=== PATIENT | male | born 2000 | race Caucasian/White ===

== ENCOUNTER 2021-03-06 21:13 | Emergency (ER) | payer MEDICAID, OTHER ==
[~2021-03-06] VITALS: Ht 180.3 cm; Wt 63.6 kg
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
[2021-03-06 22:36] VITALS: BP 144/94
== END 2021-03-06 22:36 | disposition home or self-care (01) ==
LOC: ER FS 21:15
DX: S00.83XA Contusion of other part of head, initial encounter (principal); S20.319A Abrasion of unspecified front wall of thorax, initial encounter; S80.212A Abrasion, left knee, initial encounter; S80.211A Abrasion, right knee, initial encounter; S09.90XA Unspecified injury of head, initial encounter; Y04.2XXA Assault by strike against or bumped into by another person, initial encounter
CPT/HCPCS: 70450; 70486; 72125

== ENCOUNTER 2021-08-07 19:52 | Emergency (ER) | payer MEDICAID ==
[~2021-08-07] VITALS: Ht 180 cm; Wt 66.2 kg
--- NOTE | 2021-08-07 20:10 | ED Lower Extremity ---
General Chief Complaint: Lower Extremity Stated Complaint: RIGHT FOOT/ANKLE INJURY Source: patient Exam Limitations: no limitations History of Present Illness Date Seen by Provider: Aug 07, 2021 Time Seen by Provider: 19:57 Initial Comments 21-year-old male with no significant past medical history coming in due to right ankle pain. He was playing basketball about 30 minutes prior to arrival when he came down and twisted his ankle out. Was able to take some steps on it but has been limping since. Has not taking any medicines. The pain is moderate, constant, throbbing in his right ankle laterally. The pain is worse with walking. Denies any previous injuries. Allergies and Home Medications Allergies Coded Allergies: No Known Drug Allergies (Unverified , 03/06/21) Patient Home Medication List Home Medication List Reviewed: Yes Review of Systems Constitutional: No chills, No fever EENTM: No blurred vision Respiratory: No cough Cardiovascular: No chest pain Gastrointestinal: No abdominal pain Genitourinary: no symptoms reported Musculoskeletal: joint pain Skin: no symptoms reported Psychiatric/Neurological: No Symptoms Reported All Other Systems Reviewed Negative Unless Noted: Yes Past Nxvgced-Cddpsr-Lralok Hx Patient Social History Tobacco Use?: Yes Substance use?: Yes Substance type: Marijuana Alcohol Use?: Yes Past Medical History Surgeries: Yes Orthopedic Respiratory: No Cardiac: No Neurological: No Genitourinary: No Gastrointestinal: No Musculoskeletal: No Endocrine: No HEENT: No Cancer: No Family Medical History No Pertinent Family Hx Physical Exam Vital Signs Vital Signs - First Documented 08/07/21 20:00 Temp 37.2 Pulse 78 Resp 15 B/P (MAP) 149/83 (105) Pulse Ox 98 O2 Delivery Room Air Capillary Refill : Height, Weight, BMI Height: '" Weight: lbs. oz. kg; 19.00 BMI Method: General Appearance: WD/WN, no apparent distress HEENT: PERRL/EOMI, normal ENT inspection, pharynx normal Neck: non-tender, full range of motion, supple, normal inspection Cardiovascular: regular rate, rhythm, no edema, no murmur Respiratory: chest non-tender, lungs clear, normal breath sounds, no respir atory distress, no accessory muscle use Gastrointestinal: normal bowel sounds, non tender, soft; No distended, No guarding, No rebound Back: normal inspection, no vertebral tenderness Hips: bilateral hip non-tender, bilateral hip normal inspection, bilateral hip normal range of motion, bilateral hip no evidence of injury Legs: bilateral leg non-tender, bilateral leg normal inspection, bilateral leg normal range of motion, bilateral leg no evidence of injury Knees: bilateral knee non-tender, bilateral knee normal inspection, bilateral knee normal range of motion, bilateral knee no evidence of injury Ankles: left ankle non-tender, left ankle normal inspection, left ankle normal range of motion, left ankle no evidence of injury; right ankle bone tenderness, right ankle pain, right ankle soft tissue tenderness, right ankle swelling, right ankle other (Maximal pain along the ATFL on the right, no proximal fifth metatarsal tenderness, no pain along the Lisfranc, no pain along the achilles, no pain along the proximal fibula) Neurologic/Tendon: normal sensation, normal motor functions Neurologic/Psychiatric: no motor/sensory deficits, alert, normal mood/affect Skin: normal color, warm/dry Lymphatic: no adenopathy Procedures/Interventions Splinting and Joint Reduction : Ordered: Crutches Hand-Made Type: orthoglass (Posterior slab as well as sugar tong placed on the right lower extremity with Barry bandage around it, neurovascularly intact before and after the procedure with good pain control) Progress/Results/Core Measures Results/Orders My Orders Orders - SANIA MORROW MD Ankle 3 View Right (08/07/21 20:05) Ibuprofen Tablet (Motrin Tablet) (08/07/21 20:15) Foot 3 View Right (08/07/21 20:34) Medications Given in ED Current Medications Medications Dose Ordered Sig/Tami Route Start Time Stop Time Status Last Admin Dose Admin Ibuprofen 600 mg ONCE ONCE PO 08/07/21 20:15 08/07/21 20:16 DC 08/07/21 20:14 600 MG Vital Signs/I&O 08/07/21 20:00 Temp 37.2 Pulse 78 Resp 15 B/P (MAP) 149/83 (105) Pulse Ox 98 O2 Delivery Room Air Progress Progress Note : Progress Note 21yoM with above history coming in for R ankle pain and swelling. Maximal tenderness over the ATFL ligament. Given ibuprofen for pain. XR ankle ordered and interpreted by me showing an avulsion of his navicular as well as talus. I placed him in a posterior slab with sugar tong on his right lower extremity. We will have him follow-up with orthopedist here in town. Pain control was good. He was then discharged home in stable condition with strict return precautions Departure Impression Primary Impression: Navicular fracture of ankle Qualified Codes: S92.251A - Displaced fracture of navicular [scaphoid] of right foot, initial encounter for closed fracture Additional Impression: Talus fracture Qualified Codes: S92.151A - Displaced avulsion fracture (chip fracture) of right talus, initial encounter for closed fracture Disposition: HOME, SELF-CARE Condition: Stable Departure-Patient Inst. Decision time for Depature: 21:22 Referrals: KYRA CUTLER,LOCAL PHYSICIAN (PCP) Primary Care Physician Patient Instructions: SPLINT CARE, Foot Fracture ED Add. Discharge Instructions: Please follow-up with Steven Cutler within the next week. Take ibuprofen 6 mg every 6 hours as needed for pain. If you still have a lot of pain you can then add Tylenol 1000 mg every 6-8 hours. You can also ice it but be sure not to get the splint wet. Do not put any weight on your foot until you follow-up with Ortho. Work/School Note: School/Childcare Release, Date Seen in the Emergency Department: Aug 07, 2021 Time Dismissed from Emergency Department: 21:23 Return to School: Aug 08, 2021 Restrictions: No PE-Until Released, No Sports-Until Released Work Release Form Date Seen in the Emergency Department: Aug 07, 2021 Return to Work: Aug 11, 2021 Restrictions: Need Release from Doctor SANIA MORROW MD Aug 07, 2021 20:10
[2021-08-07] MEDS ORDERED: IBUPROFEN 600 MG (MOTRIN) TAB PO ONE (20:15)
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
--- NOTE | 2021-08-07 20:54 | Diagnostic Imaging Report ---
INDICATION: Pain, twisting injury EXAMINATION: Right foot 08/07/2021 FINDINGS: 3 views of the foot There are densities adjacent to the dorsal border of the navicular and talus suspicious for avulsion fracture given overlying soft tissue swelling. The remaining osseous structures intact. No dislocations. There is an additional linear density adjacent to the medial border of the navicular which could be an avulsion fracture as well. IMPRESSION: 1. Suspected avulsion fractures from the navicular and adjacent talus. Dictated by: Dictated on workstation # [id number]
[2021-08-07 21:30] VITALS: BP 130/80
== END 2021-08-07 21:30 | disposition home or self-care (01) ==
LOC: EDUNIT# 19:52 → ER FS 19:56
DX: S92.251A Displaced fracture of navicular [scaphoid] of right foot, initial encounter for closed fracture (principal); S92.151A Displaced avulsion fracture (chip fracture) of right talus, initial encounter for closed fracture; X50.1XXA Overexertion from prolonged static or awkward postures, initial encounter; Y93.67 Activity, basketball
CPT/HCPCS: 29505; 73610; 73630